=== PATIENT | male | born 1990 | race Caucasian/White ===

== ENCOUNTER 2018-05-30 18:33 | Emergency (ER) | payer OTHER ==
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
--- NOTE | 2018-06-02 09:28 | CR ---
Foot Comp Min 3V Bi CLINICAL HISTORY: Pain, fall FINDINGS: There is no acute fracture or dislocation within the feet. No destructive changes are prese nt. IMPRESSION: No acute bony process.
== END 2018-05-30 20:02 | disposition home or self-care (01) ==
LOC: JP.ED 18:33
DX: S99.922A Unspecified injury of left foot, initial encounter (principal); Z88.2 Allergy status to sulfonamides; Z88.1 Allergy status to other antibiotic agents; W14.XXXA Fall from tree, initial encounter
CPT/HCPCS: 736302650; 73630-50; 99284